=== PATIENT | female | born 1970 | race Caucasian/White ===

== ENCOUNTER 2017-05-26 17:27 | Emergency (ER) | payer SELFPAY ==
[~2017-05-26] VITALS: Ht 160 cm; Wt 57.2 kg
[~2017-05-26 17:27] MED LIST: PROM25SU8 PO; Z.0.NO CURRENT MEDS
[2017-05-26 17:44] VITALS: BP 127/74; PULSE 66; RESP 18; TEMP 97.6; O2SAT 100
[2017-05-26] MEDS ORDERED: CYCL1TAB29 PO (17:56)
--- NOTE | 2017-05-26 17:56 | PD ---
HPI . Ear pain Chief Complaint: ENT Complaint Time Seen by Provider: 17:47 Travel History International Travel<30 days: No Contact w/Intl Traveler<30days: No Traveled to known affect area: No History of Present Illness HPI This patient presents with a chief complaint of ear pain. Onset was last night. Symptoms are much worse today. She states her head feels very full and pressure-like. She has subsequently developed pain in her posterior neck. That just started a couple of hours ago. She has taken some Advil with minimal relief of her symptoms. She has not tried any cold or sinus medication. She has not been running a fever. 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) Tonsillectomy: Yes Social History Alcohol Use: Yes (OCCASIONALLY) Tobacco Use: Yes (/2 PPD) Allergies-Medications (Allergen,Severity, Reaction): Coded Allergies: acetaminophen (Verified Allergy, Severe, HIVES, 05/26/17) codeine (Unverified Allergy, Severe, ABDOMINAL PAIN, 05/26/17) diazepam (Unverified Allergy, Severe, HIVES, 05/26/17) pamabrom (Verified Allergy, Severe, HIVES, 05/26/17) Reported Meds & Prescriptions Reported Meds & Active Scripts Active No Active Prescriptions or Reported Medications Review of Systems Except as stated in HPI: all other systems reviewed are Neg General / Constitutional: No: Fever, Chills HENT: Positive: Neck Pain, Earache, Other (fullness in her head.) Physical Exam Narrative GENERAL: This patient ambulates in in no acute distress. SKIN: Warm and dry with no rashes. HEAD: Normocephalic/atraumatic. Nontender. EYES: Pupils are equal. Extraocular movements are intact. The conjunctiva has no injection or discharge. ENT: TMs are both shiny hdz with good light reflexes bilaterally. Oropharynx has no erythema, tonsillar enlargement or exudate. NECK: No cervical lymphadenopathy. Neck is supple. She does have bilateral paraspinous muscle tenderness. CARDIOVASCULAR: Regular rate and rhythm. RESPIRATORY: Nonlabored. MUSCULOSKELETAL: Atraumatic. NEUROLOGICAL: Nonfocal. PSYCHIATRIC: Appropriate mood and affect. Data Data Last Documented VS Vital Signs Date Time Temp Pulse Resp B/P (MAP) Pulse Ox O2 Delivery O2 Flow Rate FiO2 05/26/17 17:44 97.6 66 18 127/74 (91) 100 MDM Medical Decision Making Medical Screen Exam Complete: Yes Emergency Medical Condition: Yes Differential Diagnosis Differential diagnosis of ear pain includes eustachian tube dysfunction, otitis externa, otitis media, TMJ syndrome Narrative Course This patient presents with bilateral ear pain and a fullness in her head. She also has pain in her neck. She has a benign exam. She will be discharged home with reassurance. Diagnosis Primary Impression: Eustachian tube dysfunction Qualified Codes: H69.83 - Other specified disorders of eustachian tube, bilateral Additional Impression: Neck pain Patient Instructions: Acute Neck Pain (ED), Eustachian Tube Dysfunction (GEN), General Instructions Additional Instructions: I recommend the use of a Neti Pot. You may use a nasal spray such as Afrin for up to 3 days as needed for nasal congestion. You may take an [id number] antihistamine such as Zyrtec, Lili or Claritin as needed for runny secretions. You may take pseudoephedrine as needed for congestion. You will need to sign for this at the pharmacy. You may take plain Mucinex, 1200 mg twice a day as needed for thick secretions. You may take a cough syrup such as Delsym as needed for cough. Motrin as needed for fever and body aches. Throat lozenges/sprays as needed for sore throat. Warm salt water gargles for sore throat. Hot tea with lemon and honey also helps soothe a sore throat. Med/Other Pt SpecificInfo: Prescription(s) given Scripts Cyclobenzaprine (Flexeril) 10 Mg Tab 10 MG PO TID for Muscle Spasm, #30 TAB 0 Refills this is for the pain in your neck Prov: Bernice Lin MD 05/26/17 Disposition: 01 DISCHARGE HOME Condition: Stable Bernice Lin MD May 26, 2017 17:56
== END 2017-05-26 18:11 | disposition home or self-care (01) ==
LOC: PHEFT 17:27
DX: H69.83 Other specified disorders of Eustachian tube, bilateral (principal); M54.2 Cervicalgia
CPT/HCPCS: 99283